=== PATIENT | female | born 1935 | race Caucasian/White ===

== ENCOUNTER 2017-11-01 12:07 | Emergency (ER) | payer MEDICARE ==
[2017-11-01 12:07] VITALS: BMI 21.2
[2017-11-01 12:32] VITALS: TEMP 98.9
[2017-11-01] MEDS ORDERED: Albuterol 0.083% Inhal Sol (2.5 mg/3 mL) UD INH STA ×2 (12:37→12:38)
[2017-11-01] MEDS ORDERED: Promethazine/Cod 6.25mg-10mg/5ml Syr UD PO STA (12:37)
--- NOTE | 2017-11-01 12:50 | ED PDOC ---
Arrival/HPI - General Chief Complaint: Cough, Cold, Congestion Time Seen by Provider: 11/01/17 12:28 Historian: Patient - History of Present Illness Narrative History of Present Illness (Text): 11/01/17 12:47 82yo female with no PMhx who was bib BLS with 3weeks history of clear productive cough. States she did not take any medication. Notes similar history when she was diagnosed with Pneumonia years ago. Denies fever, chills, chest pain, dizziness, SOB, diaphoresis. Notes chronic history of left lower leg edema. Past Medical History - Provider Review Nursing Documentation Reviewed: Yes - Infectious Disease Hx of Infectious Diseases: None - Cardiac Hx Hypertension: Yes - Pulmonary Hx Asthma: Yes - Neurological HX Cerebrovascular Accident: Yes - Renal Hx Renal Disorder: No - Endocrine/Metabolic Hx Endocrine Disorders: No - Hematological/Oncological Hx Blood Disorders: No - Integumentary Hx Dermatological Disorder: No - Musculoskeletal/Rheumatological Hx Musculoskeletal Disorders: No - Gastrointestinal Hx Gastrointestinal Disorders: No - Genitourinary/Gynecological Hx Genitourinary Disorders: No - Psychiatric Hx Psychophysiologic Disorder: No Hx Substance Use: No - Past Surgical History Past Surgical History: No Previous - Surgical History Hx Appendectomy: Yes - Suicidal Assessment Feels Threatened In Home Enviroment: No Family/Social History - Physician Review Nursing Documentation Reviewed: Yes Family/Social History: Unknown Family HX Smoking Status: Never Smoked Hx Alcohol Use: No Hx Substance Use: No Allergies/Home Meds Allergies/Adverse Reactions: Allergies aspirin Allergy (Verified 11/01/17 12:15) ANAPHYLAXIS peanut Allergy (Verified 11/01/17 12:15) ANAPHYLAXIS Penicillins Allergy (Verified 11/01/17 12:15) ANAPHYLAXIS Review of Systems - Physician Review All systems were reviewed & negative as marked: Yes - Review of Systems Constitutional: Normal Eyes: Normal ENT: Normal Respiratory: Cough, Sputum. absent: SOB, Wheezing Cardiovascular: Normal Gastrointestinal: Normal Genitourinary Female: Normal Musculoskeletal: Normal Skin: Normal Neurological: Normal Endocrine: Normal Hemo/Lymphatic: Normal Psychiatric: Normal Physical Exam Vital Signs Reviewed: Yes Vital Signs Temp Pulse Resp BP Pulse Ox 11/01/17 16:27 71 18 125/61 95 11/01/17 15:11 75 18 128/65 95 11/01/17 14:09 78 18 130/61 95 02/21/18 12:31 98.9 F 82 132/64 94 L Temperature: Afebrile Blood Pressure: Normal Pulse: Regular Respiratory Rate: Normal Appearance: Positive for: Well-Appearing, Non-Toxic, Comfortable Pain Distress: None Mental Status: Positive for: Alert and Oriented X 3 - Systems Exam Head: Present: Atraumatic, Normocephalic Pupils: Present: PERRL Extroacular Muscles: Present: EOMI Conjunctiva: Present: Normal Mouth: Present: Moist Mucous Membranes Neck: Present: Normal Range of Motion Respiratory/Chest: Present: Clear to Auscultation, Good Air Exchange. No: Respiratory Distress, Accessory Muscle Use, Wheezes, Decreased Breath Sounds, Retracting, Rhonchi, Tachypneic Cardiovascular: Present: Regular Rate and Rhythm, Normal S1, S2. No: Murmurs Abdomen: Present: Normal Bowel Sounds. No: Tenderness, Distention, Peritoneal Signs Back: Present: Normal Inspection Upper Extremity: Present: Normal Inspection. No: Cyanosis, Edema Lower Extremity: Present: Normal Inspection. No: Edema Neurological: Present: GCS=15, CN II-XII Intact, Speech Normal Skin: Present: Warm, Dry, Normal Color. No: Rashes Psychiatric: Present: Alert, Oriented x 3, Normal Insight, Normal Concentration Medical Decision Making ED Course and Treatment: 11/01/17 20:16 PT declined chest pain in ED. she was hemodynamically stable in ED. Lab was unremarkable. CXR NAD Result was DW the pt. She have inhaler at home. She was DC home with a rx of Promethazine DM. Referred to her PMD. - Lab Interpretations Lab Results: 11/01/17 12:45 11/01/17 12:45 Lab Results 11/01/17 12:45: PT 11.7, INR 1.02, APTT 25.7 11/01/17 12:45: Sodium 140, Potassium 3.7, Chloride 102, Carbon Dioxide 27, Anion Gap 15, BUN 19, Creatinine 0.9, Est GFR ( Amer) > 60, Est GFR (Non- Af Amer) 60, Random Glucose 114 H, Calcium 10.2, Total Bilirubin 0.6, AST 37 H, ALT 33, Alkaline Phosphatase 58, Lactate Dehydrogenase 894 H, Total Creatine Kinase 191, Troponin I < 0.01, NT-Pro-B Natriuret Pep 155, Total Protein 7.3, Albumin 4.3, Globulin 3.0, Albumin/Globulin Ratio 1.4 11/01/17 12:45: WBC 5.3 D, RBC 3.57, Hgb 11.4 L, Hct 34.1 L, MCV 95.5, MCH 31.9 , MCHC 33.4, RDW 13.4, Plt Count 236, MPV 9.2, Gran % 50.0, Lymph % (Auto) 39.6 H, Lee % (Auto) 9.4 H, Eos % (Auto) 0.4 L, Baso % (Auto) 0.6, Gran # 2.65, Lymph # (Auto) 2.1, Lee # (Auto) 0.5, Eos # (Auto) 0.0, Baso # (Auto) 0.03 - RAD Interpretation Radiology Orders: 11/01/17 12:36 CHEST PORTABLE [RAD] Stat - Medication Orders Current Medication Orders: Discontinued Medications Albuterol Sulfate (Albuterol 0.083% Inhal Marce (2.5 Mg/3 Ml) Ud) 2.5 mg INH STAT STA Stop: 11/01/17 12:38 Last Admin: 11/01/17 13:19 Dose: 2.5 mg Albuterol Sulfate (Albuterol 0.083% Inhal Marce (2.5 Mg/3 Ml) Ud) 2.5 mg INH STAT STA Stop: 11/01/17 12:39 Last Admin: 11/01/17 13:19 Dose: 2.5 mg Promethazine HCl/Codeine (Phenergan/Codeine Oral Syrup) 5 ml PO STAT STA Stop: 11/01/17 12:38 Last Admin: 11/01/17 13:19 Dose: 5 ml Disposition/Present on Arrival - Present on Arrival Any Indicators Present on Arrival: No History of DVT/PE: No History of Uncontrolled Diabetes: No Urinary Catheter: No History of Decub. Ulcer: No History Surgical Site Infection Following: None - Disposition Have Diagnosis and Disposition been Completed?: Yes Diagnosis: Cough Disposition: HOME/ ROUTINE Disposition Time: 14:50 Patient Plan: Discharge Condition: STABLE Discharge Instructions (ExitCare): Cough in Adults Additional Instructions: Follow up with your Doctor Return to ED for any new or worsening symptoms Prescriptions: Promethazine [Phenergan Syrup] 6.25 mg PO Q6 #100 ml Referrals: Gil Awad, [Family Provider] - Follow up with primary Forms: [employer] (Finnish)
--- NOTE | 2017-11-01 13:28 | RAD ---
HISTORY: cough COMPARISON: 03/03/2014 FINDINGS: LUNGS: No active pulmonary disease. PLEURA: No significant pleural effusion identified, no pneumothorax apparent. CARDIOVASCULAR: Normal. OSSEOUS STRUCTURES: No significant abnormalities. VISUALIZED UPPER ABDOMEN: Normal. OTHER FINDINGS: None. IMPRESSION: No active disease.
[2017-11-01 13:58] LABS: BASO # 0.03 K/mm3 (0.0-2.0); BASO % 0.6 % (0.0-3.0); EOS % 0.4 % (1.5-5.0); GRAN # 2.65 (1.4-6.5); HEMOGLOBIN 11.4 g/dL (12.0-16.0); LYMPH # 2.1 (1.2-3.4); LYMPH % 39.6 % (22.0-35.0); MEAN CELL VOLUME 95.5 fl (80.0-105.0); MEAN CORPUSCULAR HEMOGLOBIN 31.9 pg (25.0-35.0); MEAN CORPUSCULAR HGB CONC 33.4 g/dl (31.0-37.0); MEAN PLATELET VOLUME 9.2 fl (7.0-11.0); MONO # 0.5 (0.1-0.6); MONO % 9.4 % (1.0-6.0); RBC 3.57 10^6/uL (3.5-6.1); RED CELL DISTRIBUTION WIDTH 13.4 % (11.5-14.5); WHITE BLOOD COUNT 5.3 10^3/ul (4.5-11.0)
[2017-11-01 14:10] VITALS: RESP 18; O2SAT 95
[2017-11-01 14:15] LABS: ALB/GLOB RATIO 1.4 (1.1-1.8); ALBUMIN 4.3 g/dL (3.0-4.8); ALT/SGPT 33 U/L (7-56); AST/SGOT 37 U/L (14-36); BLOOD UREA NITROGEN 19 mg/dL (7-21); CALCIUM 10.2 mg/dL (8.4-10.5); GFR AFRICAN-AMERICAN > 60; GFR NON-AFRICAN AMERICAN 60
[2017-11-01 14:18] LABS: INR 1.02 (0.93-1.08); PARTIAL THROMBOPLASTIN TIME 25.7 Seconds (25.1-36.5); PROTHROMBIN TIME 11.7 SECONDS (9.4-12.5)
[2017-11-01 14:25] LABS: TROPONIN I < 0.01 ng/mL
[2017-11-01 14:32] LABS: B-TYPE NATRIURETIC PEPTIDE 155 pg/mL (0-450)
[2017-11-01 16:27] VITALS: BP 125/61; PULSE 71
== END 2017-11-01 17:21 | disposition home or self-care (01) ==
LOC: ED 12:07
DX: R05 Cough (principal); I10 Essential (primary) hypertension